=== PATIENT | female | born 1995 | race Caucasian/White ===

== ENCOUNTER → 2017-02-27 | Outpatient (CLI) | payer OTHER ==
[2017-03-03 07:06] LABS: CHLAMYDIA TRACH RNA*** NOT DETECTED (NOT DETECTED); GC (NEIS GONORRHOEAE)RNA** NOT DETECTED (NOT DETECTED)
== END | disposition home or self-care (01) ==
LOC: C.LABSPEC 17:25
PROVIDERS: ATTEND Obstetrics & Gynecology
DX: Z20.2 Contact with and (suspected) exposure to infections with a predominantly sexual mode of transmission (principal)

== ENCOUNTER → 2017-02-27 | Outpatient (CLI) | payer OTHER | END | disposition home or self-care (01) | LOC: C.PAPS 17:53 | PROVIDERS: ATTEND Obstetrics & Gynecology | DX: Z12.4 Encounter for screening for malignant neoplasm of cervix (principal) ==

== ENCOUNTER → 2017-11-06 | Outpatient (CLI) | payer OTHER ==
[~2017-11-06] MED LIST: GADAVIST IV PRN
--- NOTE | 2017-11-06 15:15 | DIAGNOSTIC IMAGING REPORT ---
BRAIN COMBO CLINICAL HISTORY: HEADACHE mental status change COMPARISON STUDY: No previous studies for comparison. TECHNIQUE: Utilizing a 1.5 Mya magnet and dedicated coil, multiplanar, multiecho imaging of the brain was performed pre and postcontrast administration. IV administration of 10 mL of Gadavist contrast was uneventful. FINDINGS: Complete opacification right maxillary sinus. Moderate mucosal thickening left maxillary sinus. Diffusion images are negative for an acute ischemic event. Signal characteristics of the cerebellar as well as cerebral hemispheres are unremarkable. Postcontrast images are considered negative for an enhancing lesion. Sella and parasellar regions are unremarkable. IMPRESSION: 1. Normal MRI of the brain. 2. Opacified right maxillary sinus with moderate mucosal thickening left maxillary sinus. The above report was generated using voice recognition software. It may contain grammatical, syntax or spelling errors. Electronically signed by: Trenton Stevenson M.D. 11/06/2017 3:13 PM Dictated Date/Time: 11/06/2017 3:08 PM
--- NOTE | 2017-11-06 15:16 | DIAGNOSTIC IMAGING REPORT ---
MRV HEAD WITHOUT CONTRAST CLINICAL HISTORY: PSUEDOTUMOR VS MASS headache. Mental status change. TECHNIQUE: MRV/MRI brain COMPARISON STUDY: MRI brain same date FINDINGS: Normal venous evaluation of the brain. All major venous sinuses and structures are patent. There is no evidence for occlusion. IMPRESSION: Normal venous study of the brain. The above report was generated using voice recognition software. It may contain grammatical, syntax or spelling errors. Electronically signed by: Trenton Stevenson M.D. 11/06/2017 3:15 PM Dictated Date/Time: 11/06/2017 3:14 PM
== END | disposition home or self-care (01) ==
LOC: C.MRI 14:04
PROVIDERS: ATTEND Family Medicine
DX: R51 Headache (principal); J34.89 Other specified disorders of nose and nasal sinuses